=== PATIENT | male | born 1945 | race Hispanic/Latino ===

== ENCOUNTER 2017-04-19 13:34 | Emergency (ER) | payer MEDICARE, OTHER ==
[~2017-04-19 13:34] MED LIST: ESOM20CA31 PO; INSU10VI3 SQ; LISI40TA4 PO; LOSA50TA37 PO; METF500T6 PO; METO25TA6 PO; PENT400T12 PO; PIOG15TA66 PO; SIMV40TA59 PO; VERA240C3 PO
[2017-04-19] MEDS ORDERED: LIDOCAINE HCL 1% 20 ML VIAL ONE (15:02)
[2017-04-19] MEDS ORDERED: SULFAMETHOX-TMP DS 800/160 TAB ONE (15:15)
[2017-04-19] MEDS ORDERED: IBUPROFEN 600 MG TABLET ONE (15:19)
== END 2017-04-19 16:24 | disposition home or self-care (01) ==
LOC: EDH 13:34
DX: L02.11 Cutaneous abscess of neck (principal); E11.9 Type 2 diabetes mellitus without complications; E78.5 Hyperlipidemia, unspecified; I10 Essential (primary) hypertension; Z98.890 Other specified postprocedural states; Z72.0 Tobacco use
CPT/HCPCS: 10060; 82948

== ENCOUNTER 2019-11-23 14:46 | Inpatient (IN) | payer OTHER ==
[~2019-11-23] VITALS: Ht 177.8 cm; Wt 88.0 kg
[~2019-11-23 14:46] MED LIST changes: -LOSA50TA37 PO; +LOSA50TA64 PO; +METF-444 PO; -METF500T6 PO; -PENT400T12 PO; +PENT400T72 PO
[2019-11-23] MEDS ORDERED: MORPHINE SULFATE 2 MG/ML 1ML SYG ONE (15:41)
[2019-11-23] MEDS ORDERED: CEFTRIAXONE SODIUM 1 GM ONE (15:41)
[2019-11-23 15:51] LABS: BASOPHILS % (AUTO) 0.5 % (0.0-5.0); EOSINOPHILS % (AUTO) 0.7 % (0.0-8.0); LYMPHOCYTES % (AUTO) 29.2 % (21.0-51.0); MEAN CORPUSCULAR HEMOGLOBIN 28.6 pg (27.0-33.0); MEAN CORPUSCULAR HGB CONC 33.2 g/dL (32.0-36.0); MONOCYTES % (AUTO) 10.3 % (3.0-13.0); NEUTROPHILS % (AUTO) 59.1 % (40.0-77.0); PLATELET COUNT (AUTO) 295 K/uL (130-400); RED CELL DISTRIBUTION WIDTH 13.8 % (11.0-15.5); WHITE BLOOD COUNT (AUTO) 8.3 K/uL (4.8-10.8)
[2019-11-23 15:59] LABS: ALBUMIN 2.8 g/dL (3.5-5.0); BILIRUBIN,TOTAL 0.6 mg/dL (0.2-1.0); CREATININE 1.2 mg/dL (0.5-1.5); POTASSIUM 3.6 mmol/L (3.5-5.1); TOTAL PROTEIN, SERUM 6.7 g/dL (6.0-8.3)
[2019-11-23 16:14] LABS: APPEARANCE,URINE Clear (CLEAR); BILIRUBIN,URINE Negative (NEGATIVE); COLOR,URINE Dark Yellow (YELLOW); GLUCOSE, URINE (UA) >=1000 mg/dL (NEGATIVE); KETONES,URINE Trace mg/dL (NEGATIVE); LEUKOCYTE ESTERASE ,URINE Negative (NEGATIVE); NITRATE,URINE Negative (NEGATIVE); OCCULT BLOOD,URINE Negative (NEGATIVE); PROTEIN,URINE POS 2+ mg/dL (NEGATIVE)
[2019-11-23] MEDS ORDERED: VANCOMYCIN 1GM+NS 250ML 250 ML IV ONE (16:25)
[2019-11-23 16:31] LABS: BACTERIA,URINE Rare /HPF (None Seen); MUCUS,URINE Few LPF (None Seen); RBC,URINE 0-1 /HPF (0-1); SQUAMOUS EPITHELIAL CELL,UR 0-2 /HPF (0-2); WBC,URINE 0-1 /HPF (0-1)
[2019-11-23 16:55] LABS: ERYTHROCYTE SEDIMENTATION RATE 56 MM/HR (0-20)
[2019-11-23] MEDS ORDERED: ONDANSETRON HCL 4 MG/2 ML VIAL IV PRN (17:00)
[2019-11-23] MEDS ORDERED: MORPHINE SULFATE 2 MG/ML 1ML SYG IV PRN (17:00)
[2019-11-23] MEDS ORDERED: ACETAMINOPHEN 325 MG TAB PO PRN (17:00)
[2019-11-23] MEDS ORDERED: LACTULOSE 20 GM/30 ML UDCUP PO PRN (17:00)
[2019-11-23] MEDS ORDERED: VANCOMYCIN 1GM+NS 250ML 250 ML IV SCH (17:00)
[2019-11-23] MEDS: SODIUM CHLORIDE 0.9% 1000ML 1,000 ML IV SCH (17:00)
[2019-11-23] MEDS ORDERED: HYDRALAZINE HCL 20 MG/ML VIAL IV PRN (17:30)
[2019-11-23] MEDS: VANCOMYCIN 750MG + NS 250 ML IV SCH ×2 (18:00)
[2019-11-23] MEDS ORDERED: COMPOUND IV REFRIGERATED 1 EACH IVSOLN MISC PRN (18:15)
[2019-11-23] MEDS ORDERED: VANCOMYCIN PROTOCOL PER PHARMACY IV SCH (18:15)
[2019-11-23] MEDS ORDERED: INSULIN HUMULIN R 100 UNIT/ML 3ML ONE ×2 (18:43→20:11)
[2019-11-23] MEDS: INSULIN GLARGINE 100 UNITS/ML 10 ML VIAL SQ SCH (21:00)
[2019-11-23] MEDS: ZOSYN 3.375GM+NS 50ML 50 ML IV SCH (21:00)
[2019-11-23] MEDS: FAMOTIDINE 20MG TAB 20 MG TAB PO SCH (21:00)
[2019-11-23] MEDS: INSULIN HUMULIN R 100 UNIT/ML 3ML SQ SCH (21:00)
[2019-11-23] MEDS ORDERED: ZOSYN 3.375GM+NS 50ML 50 ML IV ONE (21:09)
[2019-11-23 22:50] VITALS: BP 146/59
--- NOTE | 2019-11-23 22:55 | NUR ---
ADMISSION NOTE ADMIT TO ROOM 310 VIA STRETCHER FROM ER. PATIENT AWAKE, ALERT, OX3, NO SOB, NO C/O PAIN AT THIS TIME, RIGHT GREAT TOE NECROTIC, LEFT WRIST 18 GAUGE PATIENT WITH IVF INFUSING WELL, TEACH PATIENT PLAN OF CARE AND EXPECTED OUTCOME, PATIENT VERBALIZES UNDERSTANDING VIA TEACH BACK
[2019-11-24] MEDS: SODIUM CHLORIDE 0.9% 1000ML 1,000 ML IV SCH ×3 (03:54→22:06)
[2019-11-24] MEDS: ZOSYN 3.375GM+NS 50ML 50 ML IV SCH ×3 (03:55→20:32)
[2019-11-24 04:00] VITALS: BP 149/63
[2019-11-24] MEDS ORDERED: PHARMACY COMMUNICATION MISC SCH (04:00)
[2019-11-24 05:03] LABS: BASOPHILS % (AUTO) 0.7 % (0.0-5.0); EOSINOPHILS % (AUTO) 1.3 % (0.0-8.0); HEMATOCRIT 35.1 % (42-54); LYMPHOCYTES % (AUTO) 28.5 % (21.0-51.0); MEAN CORPUSCULAR HEMOGLOBIN 28.5 pg (27.0-33.0); MEAN CORPUSCULAR VOLUME 86.2 fL (79-99); MONOCYTES % (AUTO) 11.9 % (3.0-13.0); NEUTROPHILS % (AUTO) 57.3 % (40.0-77.0); PLATELET COUNT (AUTO) 289 K/uL (130-400); RED BLOOD CELL COUNT(AUTO) 4.07 MIL/uL (4.50-6.20); RED CELL DISTRIBUTION WIDTH 13.5 % (11.0-15.5); WHITE BLOOD COUNT (AUTO) 7.2 K/uL (4.8-10.8)
[2019-11-24 05:28] LABS: CREATININE 0.7 mg/dL (0.5-1.5); POTASSIUM 3.5 mmol/L (3.5-5.1)
[2019-11-24] MEDS: VANCOMYCIN 750MG + NS 250 ML IV SCH ×4 (06:00→18:18)
[2019-11-24] MEDS: INSULIN HUMULIN R 100 UNIT/ML 3ML SQ SCH ×4 (06:52→20:35)
[2019-11-24 08:34] VITALS: BP 149/62
[2019-11-24] MEDS: FAMOTIDINE 20MG TAB 20 MG TAB PO SCH ×2 (08:52→20:32)
[2019-11-24] MEDS: ENOXAPARIN SODIUM 40 MG/0.4 ML SYRINGE SQ SCH (08:53)
[2019-11-24] MEDS ORDERED: GADODIAMIDE 10 MMOL/20 ML VIAL IV ONE (10:26)
[2019-11-24] MEDS ORDERED: VANCOMYCIN 750MG + NS 250 ML IV SCH ×2 (10:56)
[2019-11-24 16:31] VITALS: BP 158/64
--- NOTE | 2019-11-24 16:46 | NUR ---
RD NOTIFICATION Pt admitted with L-Foot Cellulitis and Gangrene. History of HTN, DM, PVD, Gastritis. Pt with 75gm CC diet order in place. LBM 11/22. Recommend continue diet order Recommend Missael BID, 500mg Vitamin C BID, 220mg Zinc QD for wound healing support. Follow Up Nutrition Education RD to continue to monitor. Please notify as additional nutrition concerns arise. Thank you.
--- NOTE | 2019-11-24 19:10 | NUR ---
SPOKE TO SON FOR DC PLANNING MET WITH PATIENT AT [facility] HE WAS SLEEP, TO CALL SON PATIENT LIVES WITH SON AFRICA AND DAUGHTER IN LAW, WHO PROVIDES ASSISTANCE WITH ADLS. MARIO HAS WHEELCHAIR AND SHOWER CHAIR, NO PROVIDER SERVICES, SON TRANSPORTS, HAS NOT HAD HOME HEALTH FOR WOUND CARE FOR 'YEARS' NOW WITH GANGRENE TO TOES, SON MENTIONED [facility]. SON STATES PATIENT MAKES OWN DECISION, BUT PLEASE KEEP HIM INFORMED ALSO. WILL BE OPEN TO WHAT EVER PT WANTS. CM TO NUZHAT Addendum: 11/24/19 at 1912 by GUERA HEARD RN CM Amended: Links added.
[2019-11-24 19:20] VITALS: BP 151/71
[2019-11-24] MEDS: INSULIN GLARGINE 100 UNITS/ML 10 ML VIAL SQ SCH (20:36)
[2019-11-24 23:35] VITALS: BP 152/71
[2019-11-25 03:20] VITALS: BP 137/76
[2019-11-25] MEDS: ZOSYN 3.375GM+NS 50ML 50 ML IV SCH ×3 (04:48→20:47)
[2019-11-25 05:19] LABS: BASOPHILS % (AUTO) 0.4 % (0.0-5.0); EOSINOPHILS % (AUTO) 0.7 % (0.0-8.0); HEMATOCRIT 37.4 % (42-54); LYMPHOCYTES % (AUTO) 23.3 % (21.0-51.0); MEAN CORPUSCULAR HEMOGLOBIN 28.3 pg (27.0-33.0); MEAN CORPUSCULAR HGB CONC 33.2 g/dL (32.0-36.0); MEAN CORPUSCULAR VOLUME 85.4 fL (79-99); MONOCYTES % (AUTO) 9.5 % (3.0-13.0); NEUTROPHILS % (AUTO) 65.9 % (40.0-77.0); PLATELET COUNT (AUTO) 328 K/uL (130-400); RED BLOOD CELL COUNT(AUTO) 4.38 MIL/uL (4.50-6.20); RED CELL DISTRIBUTION WIDTH 13.3 % (11.0-15.5)
[2019-11-25] MEDS: VANCOMYCIN 750MG + NS 250 ML IV SCH ×4 (05:59→17:34)
[2019-11-25] MEDS: INSULIN HUMULIN R 100 UNIT/ML 3ML SQ SCH ×4 (06:35→20:39)
[2019-11-25 08:07] VITALS: BP 156/60
[2019-11-25 09:15] LABS: CREATININE 0.7 mg/dL (0.5-1.5); POTASSIUM 3.5 mmol/L (3.5-5.1)
[2019-11-25] MEDS: FAMOTIDINE 20MG TAB 20 MG TAB PO SCH ×2 (09:17→20:47)
[2019-11-25] MEDS: ENOXAPARIN SODIUM 40 MG/0.4 ML SYRINGE SQ SCH (09:18)
[2019-11-25 11:50] VITALS: BP 169/71
[2019-11-25] MEDS: ACETAMINOPHEN 325 MG TAB PO PRN ×2 (13:13→17:37)
--- NOTE | 2019-11-25 14:05 | NUR ---
DR. WATSON PRESENT TO SEE PATIENT AT THIS TIME. PATIENT STATES WANTS DR. WATSON TO PERFORM SURGERY TO HIS LEFT FOOT. SPOKE TO PRISCILLA PÉREZ REGARDING CHANGING OF PROVIDERS. PER ELISA, PATIENT HAD NOT MENTION WHO WAS HIS PRIOR CONSTRUCTION SITE MANAGER AND COLOR TESTER CONSTRUCTION SITE MANAGER WAS ASSIGNED. PER ELISA, OKAY TO TRANSFER PROVIDER TO DR. WATSON. DR. MILAN AND DR. GREWAL [facility] WERE CANCELLED.
--- NOTE | 2019-11-25 15:25 | NUR ---
CALL RECEIVED FROM PATIENT'S SON MONSTER WINTERS. SON STATED DR. WATSON SHOULD NOT BE PLACED ON THE CASE. SON STATED MY DAD SHOULD NOT BE MAKING ANY DECISIONS REGARDING HE'S CARE WITHOUT HIM BEING NOTIFIED. I MENTIONED TO THE SON THAT THERE IS NOTHING IN WRITING IN THE CHART THAT STATES PATIENT IS NOT CAPABLE OF MAKING HIS OWN DECISIONS. SON STATED HE HAS POWER OF RESIDENT HALL DIRECTOR SIGNED AND WILL BRING A COPY TO THE HOSPITAL. SON STATED, WE ONLY WANT DR. MILAN AND [facility] MANAGING HE'S WOUND CARE. PER SON, THESE DECISIONS WERE ALREADY MADE BY THE PATIENT, THE SON AND PCP.
--- NOTE | 2019-11-25 15:50 | NUR ---
SPOKE TO DR. MONTANA AND PRISCILLA PÉREZ REGARDING SON'S CONCERNS REGARDING DR. WATSON WANTING TO PERFORM SURGERY TOMORROW MORNING. PER DR. MONTANA, IF THE PATIENT'S SON HAS POA THEN IT WOULD BE OKAY TO CHANGE SERVICES BACK TO DR. MILAN [facility]. SPOKE TO PATIENT, REGARDING THE CHANGES. PATIENT STATES, NOW MY SON WILL MAKE THE FINAL DECISION. RN CARDIOVASCULAR ICU AWARE.
--- NOTE | 2019-11-25 16:10 | NUR ---
SPOKE TO DR. MILAN REGARDING CONTINUATION OF SERVICES FOR LEFT FOOT GANGRENE. STATED WILL FOLLOW UP WITH PATIENT TOMORROW FOR POSSIBLE SURGERY ON WEDNESDAY.
[2019-11-25 16:34] VITALS: BP 133/55
--- NOTE | 2019-11-25 16:43 | NUR ---
SPOKE TO DR. WATSON REGARDING TRANSFERRING OF SERVICES BACK TO DR. MILAN AND CANCELLATION OF PROCEDURE FOR TOMORROW. PER DR. WATSON, THAT'S FINE. PLEASE JUST CALL CASE MANAGEMENT TO CANCEL ANESTHESIA.
--- NOTE | 2019-11-25 18:09 | NUR ---
(MONSTER) PATIENT'S SON CALLED REGARDING A CALL HE RECEIVED FROM DR. WATSON ASKING ABOUT WHY THE SERVICES WERE CHANGED TO DR. MILAN. SON IS NOW CONCERNED, STATING HIS DAD ALSO CALLED HIM AND WANTS DR. WATSON TO PERFORM THE SURGERY SOON POSSIBLE. I INFORMED THE SON THAT BEING MEDICAL POA HE WOULD MAKE THE FINAL DECISION FOR THE PATIENT. THE SON STATED THAT THE PAPER WORK HASN'T ACTUALLY BEEN SIGNED, IT WAS JUST PREPARED. I SPOKE TO THE PATIENT, THE PATIENT STATES WANTS DR. WATSON TO PERFORM THE SURGERY TOMORROW. SVP RESEARCH AND STRATEGIC ANALYSIS MADE AWARE.
[2019-11-25 19:10] VITALS: BP 156/69
[2019-11-25] MEDS: INSULIN GLARGINE 100 UNITS/ML 10 ML VIAL SQ SCH (20:42)
[2019-11-25] MEDS: SODIUM CHLORIDE 0.9% 1000ML 1,000 ML IV SCH (21:32)
[2019-11-25 23:37] VITALS: BP 159/72
[2019-11-26] VITALS (17 sets, daily range): BP systolic 122–173; BP diastolic 50–100
[2019-11-26] MEDS: ZOSYN 3.375GM+NS 50ML 50 ML IV SCH ×3 (05:35→20:55)
[2019-11-26] MEDS: VANCOMYCIN 750MG + NS 250 ML IV SCH ×4 (05:56→18:51)
[2019-11-26] MEDS: INSULIN HUMULIN R 100 UNIT/ML 3ML SQ SCH ×4 (06:02→21:00)
[2019-11-26] MEDS ORDERED: LIDOCAINE HCL 1% 20 ML VIAL ONE (07:42)
[2019-11-26] MEDS ORDERED: BUPIVACAINE/PF 0.5% 30ML VIAL ONE (07:42)
[2019-11-26] MEDS ORDERED: PROPOFOL 1000 MG/100 ML 100 ML IV ONE (08:04)
[2019-11-26] MEDS: FAMOTIDINE 20MG TAB 20 MG TAB PO SCH ×2 (09:00→20:55)
[2019-11-26] MEDS: ENOXAPARIN SODIUM 40 MG/0.4 ML SYRINGE SQ SCH (09:00)
[2019-11-26] MEDS: SODIUM CHLORIDE 0.9% 1000ML 1,000 ML IV SCH ×3 (09:25→17:37)
[2019-11-26] MEDS ORDERED: MORPHINE SULFATE 2 MG/ML 1ML SYG IVP PRN (10:30)
[2019-11-26] MEDS ORDERED: HYDROMORPHONE HCL 0.5 MG/0.5 ML ML IVP PRN (10:30)
--- NOTE | 2019-11-26 12:22 | NUR ---
[facility]ENET[facility]: Spoke w pt regarding Md order for [facility]. SILVIANO/PC consent obtained for [facility]. Referral faxed to [facility]. Per Luis waller f/u in am w insurance. CM to continue to emeli.
[2019-11-26] MEDS: INSULIN GLARGINE 100 UNITS/ML 10 ML VIAL SQ SCH (21:16)
[2019-11-27 03:43] VITALS: BP 159/56
[2019-11-27 04:01] LABS: BASOPHILS % (AUTO) 0.3 % (0.0-5.0); EOSINOPHILS % (AUTO) 0.8 % (0.0-8.0); HEMATOCRIT 37.6 % (42-54); LYMPHOCYTES % (AUTO) 21.6 % (21.0-51.0); MEAN CORPUSCULAR HEMOGLOBIN 28.1 pg (27.0-33.0); MEAN CORPUSCULAR HGB CONC 32.7 g/dL (32.0-36.0); MEAN CORPUSCULAR VOLUME 85.8 fL (79-99); PLATELET COUNT (AUTO) 321 K/uL (130-400); RED BLOOD CELL COUNT(AUTO) 4.38 MIL/uL (4.50-6.20); RED CELL DISTRIBUTION WIDTH 13.2 % (11.0-15.5); WHITE BLOOD COUNT (AUTO) 8.8 K/uL (4.8-10.8)
[2019-11-27 04:29] LABS: CREATININE 0.7 mg/dL (0.5-1.5); POTASSIUM 3.1 mmol/L (3.5-5.1)
[2019-11-27] MEDS: ZOSYN 3.375GM+NS 50ML 50 ML IV SCH ×3 (04:56→20:52)
[2019-11-27] MEDS: INSULIN HUMULIN R 100 UNIT/ML 3ML SQ SCH ×4 (05:33→20:54)
[2019-11-27] MEDS: SODIUM CHLORIDE 0.9% 1000ML 1,000 ML IV SCH ×3 (06:04→10:03)
[2019-11-27] MEDS: VANCOMYCIN 1GM+NS 250ML 250 ML IV SCH ×2 (06:37→18:47)
[2019-11-27 08:12] VITALS: BP 133/55
[2019-11-27] MEDS ORDERED: MAGNESIUM 2GM PREMIX 50ML 50 ML IV PRN (08:15)
[2019-11-27] MEDS: FAMOTIDINE 20MG TAB 20 MG TAB PO SCH ×2 (09:55→20:52)
[2019-11-27] MEDS: ENOXAPARIN SODIUM 40 MG/0.4 ML SYRINGE SQ SCH (09:55)
--- NOTE | 2019-11-27 12:38 | NUR ---
RD UPDATE Pt with Poor PO intake. Pt reports Difficulty swallowing, states it feels constricted. No pain. Dislikes nutritional supplements. Recommend ST evaluation. Recommend Pureed diet order pending ST evaluation RD to continue to monitor. Please notify as additional nutrition concerns arise. Thank you.
[2019-11-27 14:56] VITALS: BP 141/69
--- NOTE | 2019-11-27 17:32 | NUR ---
CM Note: [facility] pending approval CM spoke to Kat coleman/Tae, received updated clinicals and sent to insurance. Pt pending approval. MOT filled out pending to be completed once approval received. EMS filled out pending to be faxed w/current date once pt ready to DC. Primary nurse aware. CM to cont to follow up.
[2019-11-27 20:12] VITALS: BP 133/90
[2019-11-27] MEDS: INSULIN GLARGINE 100 UNITS/ML 10 ML VIAL SQ SCH (20:54)
[2019-11-28 00:06] VITALS: BP 166/86
[2019-11-28] MEDS ORDERED: GUAIFENESIN-DM 200/20 MG 10 ML PO PRN (02:45)
[2019-11-28] MEDS ORDERED: GUAIFENESIN-DM 200/20 MG 10 ML ONE (02:59)
[2019-11-28 04:09] VITALS: BP 172/72
[2019-11-28 04:17] LABS: BASOPHILS % (AUTO) 0.2 % (0.0-5.0); EOSINOPHILS % (AUTO) 0.4 % (0.0-8.0); HEMATOCRIT 35.9 % (42-54); LYMPHOCYTES % (AUTO) 14.3 % (21.0-51.0); MEAN CORPUSCULAR HEMOGLOBIN 28.4 pg (27.0-33.0); MEAN CORPUSCULAR HGB CONC 33.1 g/dL (32.0-36.0); MEAN CORPUSCULAR VOLUME 85.7 fL (79-99); MONOCYTES % (AUTO) 12.8 % (3.0-13.0); PLATELET COUNT (AUTO) 340 K/uL (130-400); RED BLOOD CELL COUNT(AUTO) 4.19 MIL/uL (4.50-6.20); RED CELL DISTRIBUTION WIDTH 13.5 % (11.0-15.5)
[2019-11-28 04:26] LABS: CREATININE 0.7 mg/dL (0.5-1.5)
[2019-11-28 04:28] LABS: POTASSIUM 2.9 mmol/L (3.5-5.1)
[2019-11-28] MEDS: ZOSYN 3.375GM+NS 50ML 50 ML IV SCH ×3 (05:00→20:49)
[2019-11-28] MEDS: SODIUM CHLORIDE 0.9% 1000ML 1,000 ML IV SCH ×2 (07:00→12:25)
[2019-11-28] MEDS: VANCOMYCIN 1GM+NS 250ML 250 ML IV SCH ×2 (07:02→16:53)
[2019-11-28] MEDS: INSULIN HUMULIN R 100 UNIT/ML 3ML SQ SCH ×4 (07:18→20:53)
[2019-11-28] MEDS: LIDOCAINE HCL-MPF 1% 2ML VIAL IV PRN ×2 (07:40→16:09)
[2019-11-28] MEDS: POTASSIUM CHLORIDE 20MEQ/100ML 100 ML IV PRN ×3 (07:40→23:39)
[2019-11-28] MEDS: FAMOTIDINE 20MG TAB 20 MG TAB PO SCH ×3 (07:51→20:49)
[2019-11-28 08:34] VITALS: BP 177/83
[2019-11-28] MEDS: ENOXAPARIN SODIUM 40 MG/0.4 ML SYRINGE SQ SCH (09:16)
--- NOTE | 2019-11-28 10:02 | NUR ---
DYSPHAGIA EVAL COMPLETED. -S/S OF ASPIRATION. RECOMMEND MECHANICAL SOFT/CHOPPED, THIN LIQUIDS; PILLS CRUSHED WITH APPLESAUCE. CONTROL TOWER OPERATOR ENCOURAGED Pt TO PARTICIPATE IN P.O. HE NEEDED GOOD NUTRITION/HYDRATION AT THIS TIME. Pt RESPONDED BY STATING TO "LET ME ." CONTROL TOWER OPERATOR REPORTED STATEMENTS TO NURSE MELINDA. PLEASE CONSIDER PSYCH CONSULT. NURSE REPORTED COMPLAINS OF SOAR THROAT TO . Addendum: 11/28/19 at 1005 by BERTRAM ALVAREZ, [facility] Amended: Links added.
[2019-11-28 11:35] VITALS: BP 167/73
[2019-11-28] MEDS ORDERED: PHENOL 177 ML BOTTLE PO PRN (12:30)
[2019-11-28] MEDS ORDERED: LIDOCAINE HCL 2% VISCOUS 15 ML UDCUP PO SCH (14:45)
[2019-11-28] MEDS: LISINOPRIL 40 MG TABLET PO SCH (16:00)
[2019-11-28] MEDS: POTASSIUM CHLORIDE 20 MEQ ERTAB PO PRN ×2 (16:02→16:03)
[2019-11-28 16:50] VITALS: BP 158/74
[2019-11-28] MEDS ORDERED: HYDRALAZINE HCL 20 MG/ML VIAL IV PRN (18:15)
[2019-11-28 18:16] LABS: ABG BASE EXCESS -16.6 mmol/L (-2.0-3.0); ABG HCO3 13.1 mmol/L (21.0-28.0); ABG OXYGEN SATURATION 99.2 % (95.0-99.0); ABG PCO2 46 mmHg (35-48)
[2019-11-28] MEDS ORDERED: SODIUM CHLORIDE 0.9% 1000ML 1,000 ML IV SCH ×2 (18:28→23:15)
--- NOTE | 2019-11-28 19:15 | NUR ---
CALLED PT'S SON, MONSTER AND NOTIFIED HIM OF PATIENT'S CHANGE OF STATUS, INFORMATION AND NEW ROOM NUMBER. MONSTER VERBALIZED UNDERSTANDING. SEE KEVEN GUARDADO RN HOUSESUPERVISOR NOTES/MEDICAL RECORD.
[2019-11-28] MEDS ORDERED: SODIUM BICARB 50MEQ 50ML VIAL IVPB SCH (19:25)
[2019-11-28 20:35] VITALS: BP 136/50
[2019-11-28] MEDS: INSULIN GLARGINE 100 UNITS/ML 10 ML VIAL SQ SCH (20:52)
[2019-11-28] MEDS ORDERED: ALBUTEROL INHALER 90MCG/INH IH PRN (21:30)
[2019-11-28] MEDS ORDERED: KETOROLAC TROMETHAMINE 15MG/ML IV PRN (21:45)
[2019-11-28 22:39] LABS: BASOPHILS % (AUTO) 0.3 % (0.0-5.0); EOSINOPHILS % (AUTO) 0.1 % (0.0-8.0); HEMATOCRIT 42.8 % (42-54); LYMPHOCYTES % (AUTO) 10.6 % (21.0-51.0); MEAN CORPUSCULAR HEMOGLOBIN 28.4 pg (27.0-33.0); MEAN CORPUSCULAR HGB CONC 31.5 g/dL (32.0-36.0); MEAN CORPUSCULAR VOLUME 90.1 fL (79-99); MONOCYTES % (AUTO) 9.8 % (3.0-13.0); NEUTROPHILS % (AUTO) 78.7 % (40.0-77.0); PLATELET COUNT (AUTO) 399 K/uL (130-400); RED BLOOD CELL COUNT(AUTO) 4.75 MIL/uL (4.50-6.20); RED CELL DISTRIBUTION WIDTH 13.6 % (11.0-15.5); WHITE BLOOD COUNT (AUTO) 16.4 K/uL (4.8-10.8)
[2019-11-28] MEDS ORDERED: METOPROLOL TARTRATE 1 MG/ML 5ML VIAL IV PRN (22:45)
[2019-11-28 22:48] LABS: INR 0.99 (0.85-1.15); PARTIAL THROMBOPLASTIN TIME 31.2 SEC (26.3-35.5); PROTHROMBIN TIME 10.7 SEC (9.6-11.6)
[2019-11-28 22:49] LABS: CREATININE 1.2 mg/dL (0.5-1.5); POTASSIUM 3.4 mmol/L (3.5-5.1)
[2019-11-28] MEDS ORDERED: METOPROLOL TARTRATE 1 MG/ML 5ML VIAL IV ONE (22:56)
[2019-11-28] MEDS ORDERED: LIDOCAINE HCL-MPF 1% 2ML VIAL IV PRN (23:15)
[2019-11-28] MEDS ORDERED: SODIUM CHLORIDE 0.9% 500ML 500 ML IV ONE (23:15)
[2019-11-28 23:26] LABS: ABG BASE EXCESS -8.7 mmol/L (-2.0-3.0); ABG HCO3 16.9 mmol/L (21.0-28.0); ABG OXYGEN SATURATION 94.1 % (95.0-99.0); ABG PCO2 35 mmHg (35-48)
[2019-11-29] VITALS (17 sets, daily range): BP systolic 87–148; BP diastolic 41–57
[2019-11-29] MEDS ORDERED: SODIUM BICARB 8.4% 50ML SYRINGE IVP ONE
[2019-11-29] MEDS: LIDOCAINE HCL-MPF 1% 2ML VIAL IV PRN (00:04)
[2019-11-29] MEDS: FUROSEMIDE 10 MG/ML 2ML VIAL IV SCH ×2 (01:13→19:17)
--- NOTE | 2019-11-29 01:41 | NUR ---
SHIFT NOTE received pt around 191. Per day rn pt s/p rapid response and code. see code sheet. pt s/p ct brain. bicarb bolus administered around 1929. @ 1999 pt noted to be in respiratory distress , c/o not being able to breath and throat fullness. Vs were stable, hospitalist was notified immediately. respiratory therapist was paged. pt was placed on bipap, repeat abg and labs were obtained. Pt supplemented with electrolytes as needed. Bee insertion performed and new iv insertion. @000 pt is now stable, verbalize improvement on bipap. pt is currently being closwely monitored, on tele monitor , HR stable. vss. safety precautions and aspiration precautions maintained.
[2019-11-29 02:46] LABS: CRP QUANTITATIVE 213.4 mg/L (0.00-9.0)
[2019-11-29] MEDS: SODIUM CHLORIDE 0.9% 1000ML 1,000 ML IV SCH ×3 (03:00→23:24)
--- NOTE | 2019-11-29 04:19 | NUR ---
CT scan order in for Ct scan for patient. Patient is currently on a bipap , unable to lay flat for 10 minutes at this moment, pt unable to obtain CT. WILL endorse to next shift , pt to have test done once he is able to tolerate per Provider.
[2019-11-29] MEDS: ZOSYN 3.375GM+NS 50ML 50 ML IV SCH (05:00)
[2019-11-29] MEDS: VANCOMYCIN 1GM+NS 250ML 250 ML IV SCH (05:00)
[2019-11-29] MEDS: INSULIN HUMULIN R 100 UNIT/ML 3ML SQ SCH ×4 (06:09→21:00)
[2019-11-29] MEDS: LISINOPRIL 40 MG TABLET PO SCH (07:28)
[2019-11-29] MEDS: FAMOTIDINE 20MG TAB 20 MG TAB PO SCH ×2 (07:28→20:48)
[2019-11-29] MEDS: ENOXAPARIN SODIUM 40 MG/0.4 ML SYRINGE SQ SCH (07:32)
--- NOTE | 2019-11-29 07:45 | NUR ---
ASSESSMENT PT IS AWAKE AND ALERT. PATIENT IS APHASIC AND CANNOT MAKE NEEDS KNOWN, PATIENT TRIES TO VERBALIZE BUT CANNOT. PATIENT ATTEMPTS TO OPEN HIS OWN MOUTH WITH HIS HAND BUT HAS A HARD TIME DOING SO. PLACED PATIENT ON O2 VIA NRB MASK AT 15LPM O2 SAT 97%, HOB UP AT 40 DEGREES. PO MEDS CANNOT BE GIVEN. BREATHING PATTERN IS EVEN AND UNLABORED. SIDE RAILS UP X4 CALL LIGHT WITHIN REACH. DOOR AJAR. WILL REACH OUT TO PRIMARY MD.
--- NOTE | 2019-11-29 08:45 | NUR ---
RAPID RESPONSE CALLED HR 160S, TACHYPNIC. RT XRAY LAB RESPONDED. PRIMARY MD AND FLAVORING OIL FILTERER RESPONDED. ORDERS RECEIVED.
[2019-11-29] MEDS ORDERED: METHYLPREDNISOLONE SOD SUCC 40MG/ML 1ML IVP SCH (09:00)
[2019-11-29] MEDS ORDERED: LORAZEPAM 2 MG/ML 1 ML VIAL IVP SCH (09:00)
[2019-11-29] MEDS: LORAZEPAM 2 MG/ML 1 ML VIAL IM PRN (09:02)
--- NOTE | 2019-11-29 09:20 | NUR ---
DR ANILA FORD ROUNDGRADY PLAN TO INTUBATE PATIENT AND SEND TO ICU
[2019-11-29 09:22] LABS: ABG BASE EXCESS -15.7 mmol/L (-2.0-3.0); ABG HCO3 17.7 mmol/L (21.0-28.0); ABG OXYGEN SATURATION 96.9 % (95.0-99.0); ABG PCO2 81 mmHg (35-48)
[2019-11-29] MEDS ORDERED: SODIUM BICARB 50MEQ 50ML VIAL ONE (09:25)
[2019-11-29] MEDS ORDERED: FENTANYL CITRATE PF 50 MCG/1 ML 2ML VIAL ONE (09:28)
[2019-11-29 09:30] LABS: BASOPHILS % (AUTO) 0.2 % (0.0-5.0); EOSINOPHILS % (AUTO) 0.9 % (0.0-8.0); HEMATOCRIT 42.1 % (42-54); LYMPHOCYTES % (AUTO) 12.9 % (21.0-51.0); MEAN CORPUSCULAR HEMOGLOBIN 28.5 pg (27.0-33.0); MEAN CORPUSCULAR HGB CONC 31.6 g/dL (32.0-36.0); MEAN CORPUSCULAR VOLUME 90.1 fL (79-99); MONOCYTES % (AUTO) 9.8 % (3.0-13.0); NEUTROPHILS % (AUTO) 75.4 % (40.0-77.0); PLATELET COUNT (AUTO) 427 K/uL (130-400); RED BLOOD CELL COUNT(AUTO) 4.67 MIL/uL (4.50-6.20); RED CELL DISTRIBUTION WIDTH 13.9 % (11.0-15.5); WHITE BLOOD COUNT (AUTO) 21.2 K/uL (4.8-10.8)
[2019-11-29 09:42] LABS: INR 1.05 (0.85-1.15); PARTIAL THROMBOPLASTIN TIME 33.8 SEC (26.3-35.5); PROTHROMBIN TIME 11.3 SEC (9.6-11.6)
[2019-11-29] MEDS ORDERED: FENTANYL CITRATE PF 50 MCG/1 ML 2ML VIAL IVP SCH (09:45)
--- NOTE | 2019-11-29 09:45 | NUR ---
CALLED NUMBER [phone] TO CONTACT SON NO ANSWER
[2019-11-29 09:46] LABS: ALBUMIN 2.8 g/dL (3.5-5.0); BILIRUBIN,TOTAL 0.9 mg/dL (0.2-1.0); CREATININE 1.4 mg/dL (0.5-1.5); MAGNESIUM 2.1 mg/dL (1.80-2.40); POTASSIUM 3.6 mmol/L (3.5-5.1); TOTAL PROTEIN, SERUM 7.7 g/dL (6.0-8.3)
--- NOTE | 2019-11-29 09:50 | NUR ---
INTUBATION AT BEDSIDE WITH DR ANILA FORD, RADHIKA RT, GUY RT AND BERNARD RN
--- NOTE | 2019-11-29 09:53 | NUR ---
DOWN TO ICU VIA BED WITH ICU STAFF AND RT STAFF
[2019-11-29] MEDS ORDERED: PROPOFOL 1000 MG/100 ML 100 ML IV ONE (10:06)
--- NOTE | 2019-11-29 10:15 | NUR ---
SPOKE WITH SON VIA PHONE UPDATES GIVEN, HE IS AWARE FATHER IS INTUBATED AND IN ICU
[2019-11-29 10:44] LABS: ABG BASE EXCESS -4.8 mmol/L (-2.0-3.0); ABG HCO3 20.2 mmol/L (21.0-28.0); ABG OXYGEN SATURATION 96.7 % (95.0-99.0); ABG PCO2 37 mmHg (35-48)
[2019-11-29] MEDS ORDERED: FENTANYL CITRATE PF 0.05 MG/ML 1,000 MCG in SODIUM CHLORIDE 0.9% 100 ML IVPB PRN (10:45)
[2019-11-29] MEDS ORDERED: NOREPINEPHRINE 4MG/NS 250ML 250 ML IV ONE (11:14)
[2019-11-29] MEDS ORDERED: PHARMACY COMMUNICATION MISC SCH (12:00)
[2019-11-29] MEDS ORDERED: NOREPINEPHRINE 4MG/NS 250ML 250 ML IV SCH (12:30)
--- NOTE | 2019-11-29 12:31 | NUR ---
CANCEL ORDER. ORDER RECEIVED . CANCELLED AT THIS TIME, Pt INTUBATED. SKILLED SPEECH/SWALLOW EVALUATION IS RECOMMENDED 24 HPURS POST EXTUBATION. Addendum: 11/29/19 at 1247 by BERTRAM ALVAREZ, [facility] ST Amended: Links added.
[2019-11-29] MEDS ORDERED: SODIUM CHLORIDE 0.9% 1000ML 1,000 ML IV ONE (12:45)
[2019-11-29] MEDS: PROPOFOL 1000 MG/100 ML 100 ML IV PRN (13:33)
[2019-11-29] MEDS: MEROPENEM 1 GM VIAL IVP SCH ×2 (13:40→20:48)
[2019-11-29] MEDS: LINEZOLID 600 MG/ISO-OSM 300 ML IV SCH ×2 (13:40→23:23)
[2019-11-29] MEDS ORDERED: IOHEXOL-350 75 ML VIAL IV ONE (13:44)
[2019-11-29 15:42] LABS: BASOPHILS % (AUTO) 0.1 % (0.0-5.0); EOSINOPHILS % (AUTO) 1.8 % (0.0-8.0); HEMATOCRIT 32.4 % (42-54); LYMPHOCYTES % (AUTO) 2.7 % (21.0-51.0); MEAN CORPUSCULAR HGB CONC 33.3 g/dL (32.0-36.0); MEAN CORPUSCULAR VOLUME 86.9 fL (79-99); MONOCYTES % (AUTO) 7.4 % (3.0-13.0); NEUTROPHILS % (AUTO) 87.8 % (40.0-77.0); PLATELET COUNT (AUTO) 325 K/uL (130-400); RED BLOOD CELL COUNT(AUTO) 3.73 MIL/uL (4.50-6.20); RED CELL DISTRIBUTION WIDTH 13.8 % (11.0-15.5); WHITE BLOOD COUNT (AUTO) 12.8 K/uL (4.8-10.8)
[2019-11-29 16:09] LABS: CREATININE 1.4 mg/dL (0.5-1.5)
[2019-11-29 16:17] LABS: POTASSIUM 2.8 mmol/L (3.5-5.1)
[2019-11-29] MEDS: POTASSIUM CHLORIDE 20MEQ/100ML 100 ML IV PRN ×3 (16:21→23:23)
[2019-11-29] MEDS: INSULIN GLARGINE 100 UNITS/ML 10 ML VIAL SQ SCH (21:00)
[2019-11-29 22:19] LABS: BASOPHILS % (AUTO) 0.1 % (0.0-5.0); EOSINOPHILS % (AUTO) 1.9 % (0.0-8.0); HEMATOCRIT 31.5 % (42-54); LYMPHOCYTES % (AUTO) 5.9 % (21.0-51.0); MEAN CORPUSCULAR HEMOGLOBIN 28.2 pg (27.0-33.0); MEAN CORPUSCULAR HGB CONC 33.7 g/dL (32.0-36.0); MEAN CORPUSCULAR VOLUME 83.8 fL (79-99); MONOCYTES % (AUTO) 10.1 % (3.0-13.0); NEUTROPHILS % (AUTO) 81.7 % (40.0-77.0); PLATELET COUNT (AUTO) 323 K/uL (130-400); RED BLOOD CELL COUNT(AUTO) 3.76 MIL/uL (4.50-6.20); RED CELL DISTRIBUTION WIDTH 13.6 % (11.0-15.5); WHITE BLOOD COUNT (AUTO) 11.6 K/uL (4.8-10.8)
[2019-11-29 22:24] LABS: CREATININE 1.3 mg/dL (0.5-1.5); POTASSIUM 3.3 mmol/L (3.5-5.1)
[2019-11-30] VITALS (23 sets, daily range): BP systolic 112–177; BP diastolic 48–77
[2019-11-30] MEDS: PROPOFOL 1000 MG/100 ML 100 ML IV PRN ×3 (00:56→20:31)
[2019-11-30] MEDS: MEROPENEM 1 GM VIAL IVP SCH ×3 (04:07→19:48)
[2019-11-30 04:48] LABS: BASOPHILS % (AUTO) 0.2 % (0.0-5.0); EOSINOPHILS % (AUTO) 1.6 % (0.0-8.0); HEMATOCRIT 31.2 % (42-54); LYMPHOCYTES % (AUTO) 7.3 % (21.0-51.0); MEAN CORPUSCULAR HEMOGLOBIN 28.1 pg (27.0-33.0); MEAN CORPUSCULAR HGB CONC 33.7 g/dL (32.0-36.0); MEAN CORPUSCULAR VOLUME 83.4 fL (79-99); MONOCYTES % (AUTO) 8.8 % (3.0-13.0); NEUTROPHILS % (AUTO) 81.6 % (40.0-77.0); PLATELET COUNT (AUTO) 331 K/uL (130-400); RED BLOOD CELL COUNT(AUTO) 3.74 MIL/uL (4.50-6.20); RED CELL DISTRIBUTION WIDTH 13.7 % (11.0-15.5); WHITE BLOOD COUNT (AUTO) 12.9 K/uL (4.8-10.8)
[2019-11-30 05:20] LABS: CREATININE 1.2 mg/dL (0.5-1.5); POTASSIUM 3.8 mmol/L (3.5-5.1)
[2019-11-30] MEDS: INSULIN HUMULIN R 100 UNIT/ML 3ML SQ SCH ×4 (06:34→20:33)
[2019-11-30 07:21] LABS: ABG HCO3 19.5 mmol/L (21.0-28.0); ABG OXYGEN SATURATION 99.4 % (95.0-99.0); ABG PCO2 26 mmHg (35-48)
[2019-11-30] MEDS: FAMOTIDINE 20MG TAB 20 MG TAB PO SCH ×2 (08:58→19:48)
[2019-11-30] MEDS: ENOXAPARIN SODIUM 40 MG/0.4 ML SYRINGE SQ SCH (08:59)
[2019-11-30] MEDS: LISINOPRIL 40 MG TABLET PO SCH (09:22)
--- NOTE | 2019-11-30 09:52 | NUR ---
DC PLAN Spoke to Kat from [facility] Dr. Perez was going to do peer to peer but patient took a turn for the worse. Said no point at this time. Patient is now vented and pending re- consult for more amputation. At this time if we did get auth patient would not be ready to transfer. Best thing is to withdraw referral and wait for patient to be stable then resubmit. Addendum: 11/30/19 at 0953 by ROLANDA SAENZ RN Amended: Links added.
[2019-11-30] MEDS ORDERED: PHARMACY COMMUNICATION MISC SCH (10:00)
[2019-11-30] MEDS ORDERED: FUROSEMIDE 10 MG/ML 2ML VIAL IV SCH (10:00)
[2019-11-30 11:13] LABS: ABG BASE EXCESS -2.6 mmol/L (-2.0-3.0); ABG HCO3 20.6 mmol/L (21.0-28.0); ABG OXYGEN SATURATION 97.2 % (95.0-99.0); ABG PCO2 32 mmHg (35-48)
--- NOTE | 2019-11-30 12:29 | NUR ---
MARGIE FOLLOW UP Pt is intubated. Possible Tube Feedings. OGT in place. on BiPAP. Severe Respiratory distress as per EMR. Recommend Tube Feeding; Vital AF 1.2 initiated at 15mls/hr X24hrs. Goal rate 45mls/hr Recommend H2O Flushes at 100mls Q6hrs. Recommendations faxed to Day Patient ([phone]). Addendum: 11/30/19 at [address] Amended: Links added.
[2019-11-30] MEDS: LINEZOLID 600 MG/ISO-OSM 300 ML IV SCH (12:58)
[2019-11-30] MEDS: METRONIDAZOLE 500MG/100ML BAG 100 ML IV SCH ×2 (13:22→22:15)
[2019-11-30] MEDS: INSULIN GLARGINE 100 UNITS/ML 10 ML VIAL SQ SCH (20:33)
[2019-11-30] MEDS: DEXMEDETOMIDINE HCL 400 MCG in SODIUM CHLORIDE 0.9% 100 ML IV SCH (22:49)
[2019-11-30] MEDS: FUROSEMIDE 10 MG/ML 2ML VIAL IV SCH (23:15)
[2019-12-01] VITALS (24 sets, daily range): BP systolic 95–166; BP diastolic 41–79
[2019-12-01] MEDS: LINEZOLID 600 MG/ISO-OSM 300 ML IV SCH ×3 (00:21→23:44)
[2019-12-01] MEDS: PROPOFOL 1000 MG/100 ML 100 ML IV PRN (02:55)
[2019-12-01] MEDS: MEROPENEM 1 GM VIAL IVP SCH ×3 (03:08→19:51)
[2019-12-01] MEDS: DEXMEDETOMIDINE HCL 400 MCG in SODIUM CHLORIDE 0.9% 100 ML IV SCH (04:24)
[2019-12-01] MEDS: METRONIDAZOLE 500MG/100ML BAG 100 ML IV SCH ×3 (05:08→21:58)
[2019-12-01] MEDS: INSULIN HUMULIN R 100 UNIT/ML 3ML SQ SCH ×4 (06:17→22:55)
--- NOTE | 2019-12-01 06:51 | NUR ---
DR. SHIRLEY WATSON AT BEDSIDE FOR LEFT FOOT DRESSING CHANGE.
[2019-12-01 08:35] LABS: ABG BASE EXCESS 0.8 mmol/L (-2.0-3.0); ABG HCO3 23.5 mmol/L (21.0-28.0); ABG OXYGEN SATURATION 92.9 % (95.0-99.0); ABG PCO2 32 mmHg (35-48)
[2019-12-01] MEDS: LISINOPRIL 40 MG TABLET PO SCH (09:31)
[2019-12-01] MEDS: FAMOTIDINE 20MG TAB 20 MG TAB PO SCH ×2 (09:31→22:54)
[2019-12-01] MEDS: ENOXAPARIN SODIUM 40 MG/0.4 ML SYRINGE SQ SCH (09:32)
[2019-12-01 09:34] LABS: HEMATOCRIT 37.4 % (42-54); MEAN CORPUSCULAR HEMOGLOBIN 28.1 pg (27.0-33.0); MEAN CORPUSCULAR HGB CONC 33.7 g/dL (32.0-36.0); MEAN CORPUSCULAR VOLUME 83.5 fL (79-99); PLATELET COUNT (AUTO) 316 K/uL (130-400); RED BLOOD CELL COUNT(AUTO) 4.48 MIL/uL (4.50-6.20); WHITE BLOOD COUNT (AUTO) 12.7 K/uL (4.8-10.8)
--- NOTE | 2019-12-01 10:00 | NUR ---
BRONCHOSCOPY PT HAD BRONCHOSCOPY DONE DUE TO INCREASE ETT SECRETIONS. BAL SENT TO LAB. PT POST PROCEDURE O2 SATS 92%. ON ONLY PRECEDEX AND FENTANYL FOR SEDATION.
--- NOTE | 2019-12-01 10:00 | NUR ---
pt on vent Addendum: 12/01/19 at 1002 by VALERIE HO RT Amended: Links added.
[2019-12-01 10:09] LABS: CREATININE 1.3 mg/dL (0.5-1.5); MAGNESIUM 1.8 mg/dL (1.80-2.40); POTASSIUM 3.1 mmol/L (3.5-5.1)
[2019-12-01 10:14] LABS: LYMPHOCYTES % (MANUAL) 13 % (22-44); MAN.DIFF COMMENT-IMPRESSION MANUAL DIFFERENTIAL; MONOCYTES % (MANUAL) 2 % (2-9); PLATELET MORPHOLOGY COMMENT ADEQUATE; SEGMENTED NEUTROPHILS % 85 % (40-70)
--- NOTE | 2019-12-01 13:00 | NUR ---
CARDIOLOGY PT NOT A CANDIDATE FOR REVASCULARIZATION OF LEFT LEG ACCORDING TO J CARLOS KAPLAN. STATES THAT THEY WILL CONTINUE TO ROUND ON PT.
[2019-12-01] MEDS: ALBUTEROL SULFATE 0.083% 2.5 MG/3 ML INH IH SCH ×2 (13:18→22:51)
[2019-12-01] MEDS: ACETYLCYSTEINE 10% 100MG/ML 4ML VIAL IH SCH ×2 (13:18→22:50)
[2019-12-01] MEDS: POTASSIUM CHLORIDE 10% ELIXIR 20 MEQ/15 ML UDCUP PO PRN ×2 (15:10→16:28)
[2019-12-01] MEDS: FENTANYL 2500MCG+NS 250ML 250 ML IV SCH (16:58)
--- NOTE | 2019-12-01 20:30 | NUR ---
Frequent seizure activity noted to pt at this time. Earlier today propofol was turned off by provider per report. Pt seen by SEPARATING MACHINE OPERATOR Beatriz. Pt received 1MG IV Ativan and propofol gtt restarted at slow rate with cessation of seizure activity. Neurology consult ordered by provider.
[2019-12-01] MEDS ORDERED: LORAZEPAM 2 MG/ML 1 ML VIAL IVP SCH (20:45)
[2019-12-01] MEDS ORDERED: PROPOFOL 1000 MG/100 ML 100 ML IV ONE (20:58)
[2019-12-01] MEDS ORDERED: PROPOFOL 1000 MG/100 ML 100 ML IV SCH (21:00)
[2019-12-01] MEDS: INSULIN GLARGINE 100 UNITS/ML 10 ML VIAL SQ SCH (22:55)
[2019-12-01] MEDS: FUROSEMIDE 10 MG/ML 2ML VIAL IV SCH (23:31)
[2019-12-02] VITALS (29 sets, daily range): BP systolic 79–165; BP diastolic 34–68
[2019-12-02] MEDS: FENTANYL 2500MCG+NS 250ML 250 ML IV SCH (02:42)
[2019-12-02] MEDS: INSULIN HUMULIN R 100 UNIT/ML 3ML SQ SCH ×4 (03:17→21:00)
[2019-12-02] MEDS: MEROPENEM 1 GM VIAL IVP SCH ×3 (03:52→21:07)
[2019-12-02] MEDS: LORAZEPAM 2 MG/ML 1 ML VIAL IM PRN ×3 (04:26→19:38)
--- NOTE | 2019-12-02 06:00 | NUR ---
Additional seizure activity noted. PRN Ativan given. Seizure activity now resolved. Discussed w/FELLING MACHINE OPERATOR Beatriz, states head CT scan needed and Dilantin level needs to be checked.
[2019-12-02] MEDS: ALBUTEROL SULFATE 0.083% 2.5 MG/3 ML INH IH SCH ×3 (06:03→22:31)
[2019-12-02] MEDS: ACETYLCYSTEINE 10% 100MG/ML 4ML VIAL IH SCH ×3 (06:03→22:31)
[2019-12-02 06:05] LABS: BASOPHILS % (AUTO) 0.2 % (0.0-5.0); EOSINOPHILS % (AUTO) 0.7 % (0.0-8.0); HEMATOCRIT 34.6 % (42-54); LYMPHOCYTES % (AUTO) 8.7 % (21.0-51.0); MEAN CORPUSCULAR HEMOGLOBIN 27.8 pg (27.0-33.0); MEAN CORPUSCULAR HGB CONC 32.7 g/dL (32.0-36.0); MONOCYTES % (AUTO) 6.8 % (3.0-13.0); NEUTROPHILS % (AUTO) 82.8 % (40.0-77.0); PLATELET COUNT (AUTO) 278 K/uL (130-400); RED BLOOD CELL COUNT(AUTO) 4.07 MIL/uL (4.50-6.20); RED CELL DISTRIBUTION WIDTH 14.1 % (11.0-15.5); WHITE BLOOD COUNT (AUTO) 10.8 K/uL (4.8-10.8)
[2019-12-02] MEDS: METRONIDAZOLE 500MG/100ML BAG 100 ML IV SCH ×3 (06:06→21:07)
[2019-12-02 06:22] LABS: CREATININE 1.4 mg/dL (0.5-1.5); MAGNESIUM 2.1 mg/dL (1.80-2.40); POTASSIUM 3.1 mmol/L (3.5-5.1)
[2019-12-02 08:26] LABS: ABG BASE EXCESS -0.4 mmol/L (-2.0-3.0); ABG HCO3 26.2 mmol/L (21.0-28.0); ABG OXYGEN SATURATION 92.7 % (95.0-99.0); ABG PCO2 50 mmHg (35-48)
[2019-12-02] MEDS ORDERED: POTASSIUM CHLORIDE 20MEQ/100ML 100 ML IV PRN (08:30)
[2019-12-02] MEDS: LISINOPRIL 40 MG TABLET PO SCH (09:00)
[2019-12-02] MEDS: FAMOTIDINE 20MG TAB 20 MG TAB PO SCH ×2 (09:22→21:07)
[2019-12-02] MEDS: POTASSIUM CHLORIDE 20MEQ/100ML 100 ML IV PRN ×2 (09:23→10:46)
[2019-12-02] MEDS: ENOXAPARIN SODIUM 40 MG/0.4 ML SYRINGE SQ SCH (09:26)
[2019-12-02] MEDS ORDERED: LEVETIRACETAM 500 MG in SODIUM CHLORIDE 0.9% 100 ML IV SCH (10:45)
[2019-12-02] MEDS ORDERED: COMPOUND IV MISC 1 EACH IVSOLN MISC PRN (11:00)
[2019-12-02] MEDS ORDERED: PHARMACY COMMUNICATION MISC SCH ×2 (13:15)
[2019-12-02] MEDS: LINEZOLID 600 MG/ISO-OSM 300 ML IV SCH (13:50)
--- NOTE | 2019-12-02 15:20 | NUR ---
DAILY UPDATE Upon morning assessment, pt seems still having intermitted seizure activity, as well as agitation/breathing against the vent. Ativan was given. Pt was taken to CT, in stable activity. Sedation infusion was increased until no symptoms of seizure noted. MD came at the beside. Situation was explained. New orders were placed (Keppra, Ativan). Plan is to wake pt up for reassessment after antiseizure medication given. Keppra was given, sedation decreasing. At this time, Propofol stopped, Fentanyl at 50mcg/hr(from 250), Precedex 0.6 mcg/kg/hr (from 1). Abxs as scheduled. No response yet. No distress/seizure activity noted. Low potassium 3.1 was replaced per protocol (x2), levels rechecked, 3.5. MD is aware. LT foot dressing changed per MD. wound looks as expected. Warm, pulses are present. No sign of infection or drainage noted. Frequent turns, oral care, bath/change linens, CHG, ardon catheter care provided. Bed in low position, alarms are on, call canales in reach, area padded for seizure prevention. Family, Derrick (son) was called and updated.
[2019-12-02] MEDS: LEVETIRACETAM 500 MG in SODIUM CHLORIDE 0.9% 100 ML IV SCH (21:08)
[2019-12-02] MEDS: INSULIN GLARGINE 100 UNITS/ML 10 ML VIAL SQ SCH (21:34)
[2019-12-03] VITALS (18 sets, daily range): BP systolic 102–143; BP diastolic 40–56
[2019-12-03] MEDS: FUROSEMIDE 10 MG/ML 2ML VIAL IV SCH (00:23)
[2019-12-03] MEDS: LORAZEPAM 2 MG/ML 1 ML VIAL IVP PRN ×3 (00:56→12:50)
[2019-12-03] MEDS: INSULIN HUMULIN R 100 UNIT/ML 3ML SQ SCH ×2 (03:17→11:35)
[2019-12-03] MEDS: MEROPENEM 1 GM VIAL IVP SCH ×2 (03:41→11:33)
[2019-12-03] MEDS: METRONIDAZOLE 500MG/100ML BAG 100 ML IV SCH ×2 (05:15→14:55)
[2019-12-03] MEDS: FENTANYL 2500MCG+NS 250ML 250 ML IV SCH (05:20)
[2019-12-03] MEDS: ALBUTEROL SULFATE 0.083% 2.5 MG/3 ML INH IH SCH ×2 (06:04→14:14)
[2019-12-03] MEDS: ACETYLCYSTEINE 10% 100MG/ML 4ML VIAL IH SCH ×2 (06:04→14:14)
--- NOTE | 2019-12-03 06:30 | NUR ---
Pt's son Derrick ([phone]) called requesting to talk to hospitalist provider. Pt states he has spoken w/Dr. Cedeño but would like to speak to hospitalist provider regarding non-podiatry issues such as possible aspiration pneumonia and seizures.
[2019-12-03] MEDS: LINEZOLID 600 MG/ISO-OSM 300 ML IV SCH ×2 (08:26)
[2019-12-03] MEDS: LEVETIRACETAM 500 MG in SODIUM CHLORIDE 0.9% 100 ML IV SCH (08:26)
[2019-12-03] MEDS: FAMOTIDINE 20MG TAB 20 MG TAB PO SCH (08:27)
[2019-12-03] MEDS: LISINOPRIL 40 MG TABLET PO SCH (08:27)
[2019-12-03] MEDS ORDERED: AMIODARONE HCL 150 MG in DEXTROSE 5%-WATER 100 ML IV SCH (09:30)
[2019-12-03 10:15] LABS: CREATININE 1.3 mg/dL (0.5-1.5); POTASSIUM 3.1 mmol/L (3.5-5.1)
[2019-12-03 10:20] LABS: ALBUMIN 1.7 g/dL (3.5-5.0); BILIRUBIN,TOTAL 0.5 mg/dL (0.2-1.0); TOTAL PROTEIN, SERUM 5.1 g/dL (6.0-8.3)
--- NOTE | 2019-12-03 10:30 | NUR ---
SEIZURE ACTIVITY SEIZURE ACTIVITY REPORTED BY NIGHT NURSE X2 EPISODES. SEIZURE ACTIVITY AGAIN STARTED AT 0740 THIS MORNING UPON ASSESSMENT OF PATIENT. ATIVAN 2MG GIVEN AND PATIENT CEASED SEIZURE ACTIVITY ABOUT 10 MIN POST ATIVAN BEING GIVEN. DR OWENS INFORMED AND DR HENDERSON ALSO MADE AWARE DUE TO PATIENT INCREASING HR TO 170S WHEN SEIZING AND POSSIBLE AFIB NOTED ON BEDSIDE MONITOR CONTROLLED, OTHER THAN WHEN PATIENT SEIZING). EKG CONFIRMED AFIB AND DR HENDERSON MADE AWARE. AMIODARONE BOLUS TO BE ORDERED AND GIVEN. TELE NEURO ALSO CONSULTED AND ORDERS GIVEN AND PLACED IN SYSTEM. DR GUERRIER ALSO INFORMED OF THIS SITUATION. PLAN IS TO TRANSFER PATIENT TO [facility] DUE TO RECURRING SEIZURES, EVEN WHEN ON SEDATION. PATIENT'S SON, BUZZ, MADE AWARE AND AGREES WITH PLAN. PATIENT TO BE TAKEN TO MRI FOR STUDY AND PENDING ARRANGEMENTS TO TRANSFER FOR HIGHER LEVEL OF CARE TO [facility] ICU.
[2019-12-03] MEDS: POTASSIUM CHLORIDE 10% ELIXIR 20 MEQ/15 ML UDCUP PO PRN (10:40)
[2019-12-03] MEDS: ENOXAPARIN SODIUM 40 MG/0.4 ML SYRINGE SQ SCH (10:44)
[2019-12-03 11:10] LABS: AMMONIA 27 umol/L (11-32); CHOLESTEROL 99 mg/dL (<200); HDL CHOLESTEROL 70 mg/dL (29-71); LDL DIRECT 49 mg/dL (0-99); TRIGLYCERIDES 104 mg/dL (30-200)
[2019-12-03] MEDS: POTASSIUM CHLORIDE 20MEQ/100ML 100 ML IV PRN ×2 (11:34→14:56)
--- NOTE | 2019-12-03 12:30 | NUR ---
MD VISIT DR WATSON AT BEDSIDE, CHANGED DRESSING TO LEFT FOOT AT THIS TIME, AND ALSO INFORMED OF PATIENT PENDING TRANSFER TO [facility]. DR WATSON STATES HE WILL FOLLOW UP WITH PATIENT THERE TOMORROW.
[2019-12-03] MEDS: DEXMEDETOMIDINE HCL 400 MCG in SODIUM CHLORIDE 0.9% 100 ML IV SCH (12:39)
--- NOTE | 2019-12-03 13:45 | NUR ---
MRI BEFORE TAKING PATIENT TO MRI, PATIENT EXPERIENCED ANOTHER SEIZURE FOR WHICH ATIVAN WAS AGAIN GIVEN. SEIZURE ACTIVITY CEASED WITHIN ABOUT 10 MIN OF MEDICATION BEING GIVEN. MRI DONE AND PATIENT BACK TO ROOM 15 ([facility] ICU).
--- NOTE | 2019-12-03 15:30 | NUR ---
TRANSFER REPORT TRANSFER REPORT GIVEN TO TEA MALIN, NURSE AT [id number] ICU AT THIS TIME. PATIENT TO BE TRANSFERRED TO ROOM 1233 AT [place]. BEVERLY, FROM EMS, NOTIFIED PATIENT IS READY FOR TRANSFER ([phone]).
--- NOTE | 2019-12-03 16:40 | NUR ---
PATIENT LEAVING VIA EMS TO [facility] AT 1620. EMS GIVEN REPORT ON PATIENT WELL. PATIENT LEAVING WITH PROPOFOL, FENTANYL, AND PRECEDEX DRIPS INFUSING. SON, BUZZ, CALLED AND MADE AWARE PATIENT IS IN ROUTE TO [facility].
[2019-12-03] MEDS ORDERED: LEVETIRACETAM 1,000 MG in SODIUM CHLORIDE 0.9% 100 ML IV SCH (21:00)
--- NOTE | 2019-12-04 09:06 | NUR ---
RASTA PLAN PATIENT TRANSFERRED TO [facility] ICU. Addendum: 12/04/19 at 0909 by ROLANDA SAENZ RN CM Amended: Links added.
[2019-12-04] MEDS ORDERED: GADODIAMIDE 10 MMOL/20 ML VIAL IV ONE (15:33)
== END 2019-12-03 16:39 | disposition short-term general hospital (02) | DRG 853 ==
LOC: EDH 14:46 → EDHIP 16:34 → 3BH 22:32 → 4DH 11-28 18:48 → DAHIP 11-29 10:00
PROVIDERS: ADMIT Internal Medicine; ATTEND Internal Medicine
PROC: 0Y6N0Z9 Detachment at Left Foot, Partial 1st Ray, Open Approach (ICD-10-PCS; principal; 2019-11-26 08:00)
PROC: 5A1955Z Respiratory Ventilation, Greater than 96 Consecutive Hours (ICD-10-PCS; 2019-11-29)
PROC: 0BH17EZ Insertion of Endotracheal Airway into Trachea, Via Natural or Artificial Opening (ICD-10-PCS; 2019-11-29)
PROC: 5A09357 Assistance with Respiratory Ventilation, Less than 24 Consecutive Hours, Continuous Positive Airway Pressure (ICD-10-PCS; 2019-11-29)
PROC: 5A12012 Performance of Cardiac Output, Single, Manual (ICD-10-PCS; 2019-11-29)
PROC: 0BC68ZZ Extirpation of Matter from Right Lower Lobe Bronchus, Via Natural or Artificial Opening Endoscopic (ICD-10-PCS; 2019-12-01)
PROC: 0BC58ZZ Extirpation of Matter from Right Middle Lobe Bronchus, Via Natural or Artificial Opening Endoscopic (ICD-10-PCS; 2019-12-01)
PROC: 0B9F8ZX Drainage of Right Lower Lung Lobe, Via Natural or Artificial Opening Endoscopic, Diagnostic (ICD-10-PCS; 2019-12-01)
PROC: 0B9D8ZX Drainage of Right Middle Lung Lobe, Via Natural or Artificial Opening Endoscopic, Diagnostic (ICD-10-PCS; 2019-12-01)
PROC: 02HV33Z Insertion of Infusion Device into Superior Vena Cava, Percutaneous Approach (ICD-10-PCS; 2019-12-01)
DX: A41.9 Sepsis, unspecified organism (principal); A48.0 Gas gangrene; J96.02 Acute respiratory failure with hypercapnia; I46.9 Cardiac arrest, cause unspecified; J69.0 Pneumonitis due to inhalation of food and vomit; J96.01 Acute respiratory failure with hypoxia; R65.21 Severe sepsis with septic shock; E87.2 Acidosis; L03.116 Cellulitis of left lower limb; E11.52 Type 2 diabetes mellitus with diabetic peripheral angiopathy with gangrene; N17.9 Acute kidney failure, unspecified; E87.0 Hyperosmolality and hypernatremia; E87.4 Mixed disorder of acid-base balance; M86.8X7 Other osteomyelitis, ankle and foot; E11.65 Type 2 diabetes mellitus with hyperglycemia; E11.42 Type 2 diabetes mellitus with diabetic polyneuropathy; F17.210 Nicotine dependence, cigarettes, uncomplicated; Z96.642 Presence of left artificial hip joint; Z20.828 Contact with and (suspected) exposure to other viral communicable diseases; E78.5 Hyperlipidemia, unspecified; I10 Essential (primary) hypertension; E11.69 Type 2 diabetes mellitus with other specified complication; E66.9 Obesity, unspecified; Z68.27 Body mass index [BMI] 27.0-27.9, adult; E87.6 Hypokalemia; G40.901 Epilepsy, unspecified, not intractable, with status epilepticus; I48.91 Unspecified atrial fibrillation; I70.202 Unspecified atherosclerosis of native arteries of extremities, left leg; J44.9 Chronic obstructive pulmonary disease, unspecified; Z99.3 Dependence on wheelchair; Z74.01 Bed confinement status; Z79.4 Long term (current) use of insulin; Z79.899 Other long term (current) drug therapy; Z89.431 Acquired absence of right foot; Z91.19 Patient's noncompliance with other medical treatment and regimen; Z82.5 Family history of asthma and other chronic lower respiratory diseases; Z82.49 Family history of ischemic heart disease and other diseases of the circulatory system; Z83.3 Family history of diabetes mellitus; Z82.3 Family history of stroke; Z82.0 Family history of epilepsy and other diseases of the nervous system
CPT/HCPCS: 31500; 36415; 36600; 70360; 70450; 70553; 71045; 71275; 73630; 73720; 80048; 80053; 80061; 80185; 80202; 81001; 82140; 82435; 82550; 82607; 82728; 82803; 82947; 82948; 83605; 83615; 83735; 83880; 84132; 84145; 84295; 84484; 85018; 85025; 85378; 85610; 85651; 85730; 86140; 87040; 87070; 87071; 87076; 87205; 87426; 88304; 88311; 92610; 92950; 93005; 93925; 93970; 94002; 94003; 94640; 94660; 94664; 94667; 97039; A9579; C1751; C1894; G0378; J0282; J0360; J0696; J1170; J1650; J1815; J1940; J1953; J2020; J2060; J2185; J2543; J2704; J2920; J3010; J3370; J3475; J3480; J3490; J7030; J7040; J7050; J7060; J7608; Q9967; U0003